=== PATIENT | female | born 1980 | race African-American/Black ===

== ENCOUNTER 2017-03-02 15:30 | Emergency (ER) | payer MEDICAID ==
[~2017-03-02] VITALS: Ht 167.6 cm; Wt 57.5 kg
[2017-03-02 16:56] VITALS: BP 108/65
== END 2017-03-02 19:40 | disposition left against medical advice (07) ==
LOC: ER 15:31
DX: R51 Headache (principal); Z53.21 Procedure and treatment not carried out due to patient leaving prior to being seen by health care provider
CPT/HCPCS: 82962

== ENCOUNTER 2018-11-06 23:30 | Emergency (ER) | payer MEDICAID ==
[~2018-11-06] VITALS: Ht 177.8 cm; Wt 61.0 kg
[2018-11-07] MEDS ORDERED: KETOROLAC 30MG/ML VIAL IV STA (01:13)
[2018-11-07] MEDS ORDERED: FAMOTIDINE 20MG/2ML VIAL IV STA (01:13)
[2018-11-07] MEDS ORDERED: ONDANSETRON HCL 4MG/2ML INJ IV STA (01:13)
[2018-11-07] MEDS ORDERED: SODIUM CHLORIDE 0.9% 1,000 ML IV ONE (01:13)
[2018-11-07 01:55] LABS: BASOPHILS % 1.1 % (0.0-2.0); EOSINOPHILS % 0.3 % (0.0-5.0); HEMATOCRIT. 35.4 % (36.0-48.0); HEMOGLOBIN. 11.2 g/dL (12.0-16.0); LYMPHOCYTES % 28.8 % (20.0-50.0); MEAN CORPUSCULAR HEMOGLOBIN 26.8 pg (28.0-32.0); MEAN PLATELET VOLUME 10.5 fl (7.4-10.4); MONOCYTES % 9.3 % (2.0-8.0); NEUTROPHILS % 60.5 % (40.0-76.0); PLATELET 131 x1000/uL (130-400); RED BLOOD CELL COUNT 4.17 mill/uL (4.2-5.4); RED CELL DISTRIBUTION WIDTH 12.8 % (11.6-14.6)
[2018-11-07 01:58] LABS: CHLORIDE 105 mEq/L (98-107)
[2018-11-07 02:02] LABS: ETHANOL BLOOD < 10 mg/dL
[2018-11-07] MEDS ORDERED: DEXTROSE 50% WATER 50ML SYRINGE IV ONE (04:15)
[2018-11-07 06:04] LABS: *AMPHETAMINES SCREEN URINE NEGATIVE (NEGATIVE); *BARBITURATES SCREEN URINE NEGATIVE (NEGATIVE); *COCAINE SCREEN URINE NEGATIVE (NEGATIVE)
[2018-11-07 06:05] LABS: CANNABINOID URINE SCREEN NEGATIVE (NEGATIVE); METHADONE URINE SCREEN NEGATIVE (NEGATIVE); OPIATES URINE SCREEN NEGATIVE (NEGATIVE); PHENCYCLIDINE URINE SCREEN NEGATIVE (NEGATIVE)
[2018-11-07 06:08] LABS: *BENZODIAZEPINES SCREEN URINE NEGATIVE (NEGATIVE)
[2018-11-07 06:12] LABS: CLARITY URINE CLEAR (CLEAR); COLOR URINE YELLOW (YELLOW); KETONES URINE NEGATIVE (NEGATIVE); LEUKOCYTE ESTERASE URINE NEGATIVE (NEGATIVE); NITRITE URINE NEGATIVE (NEGATIVE); OCCULT BLOOD URINE NEGATIVE (NEGATIVE); PH URINE 7.5 (4.5-8.0); PROTEIN URINE 1+ (NEGATIVE); SPECIFIC GRAVITY URINE 1.022 (1.005-1.030); UROBILINOGEN URINE 0.2 E.U./dL (0.2-1.0)
[2018-11-07] MEDS ORDERED: IOHEXOL-300 100 ML BOTTLE ONE (09:35)
[2018-11-07 11:30] VITALS: BP 133/93
[2018-11-07] MEDS ORDERED: ACETAMINOPHEN 325MG TABLET PO ONE (11:30)
== END 2018-11-07 12:07 | disposition home or self-care (01) ==
LOC: ER 23:45
DX: R10.9 Unspecified abdominal pain (principal); E11.9 Type 2 diabetes mellitus without complications; H54.8 Legal blindness, as defined in USA; Z97.5 Presence of (intrauterine) contraceptive device; Z88.2 Allergy status to sulfonamides; Z88.8 Allergy status to other drugs, medicaments and biological substances
CPT/HCPCS: 36415; 74177; 80053; 80305; 81003; 81025; 82962; 83690; 85025; 85610; 93005; 96361; 96374; 96375; 99284; G0482; J1885; J2405; J3490; J7030; Q9967

== ENCOUNTER 2018-12-04 12:07 | Emergency (ER) | payer MEDICAID ==
[~2018-12-04] VITALS: Ht 162.6 cm; Wt 60.0 kg
[2018-12-04] MEDS ORDERED: KETOROLAC 60MG/2ML VIAL IM ONE (13:15)
[2018-12-04] MEDS ORDERED: HYDROCODONE/ACETAMINOPHEN 5/325MG TABLET PO ONE (13:15)
[2018-12-04 13:18] VITALS: BP 135/87
== END 2018-12-04 18:29 | disposition home or self-care (01) ==
LOC: ER 12:49
DX: S13.4XXA Sprain of ligaments of cervical spine, initial encounter (principal); R51 Headache; E11.9 Type 2 diabetes mellitus without complications; M54.5 Low back pain; Z88.1 Allergy status to other antibiotic agents; Z88.2 Allergy status to sulfonamides; V43.62XA Car passenger injured in collision with other type car in traffic accident, initial encounter; Y93.89 Activity, other specified; Y92.89 Other specified places as the place of occurrence of the external cause; Y99.8 Other external cause status
CPT/HCPCS: 70450; 72040; 72125; 96372; 99284; J1885

== ENCOUNTER 2019-03-12 08:28 | Inpatient (IN) | payer MEDICAID ==
[~2019-03-12] VITALS: Ht 167.6 cm; Wt 62.3 kg
[2019-03-12 10:30] LABS: CLARITY URINE CLEAR (CLEAR); COLOR URINE YELLOW (YELLOW); KETONES URINE NEGATIVE (NEGATIVE); LEUKOCYTE ESTERASE URINE NEGATIVE (NEGATIVE); NITRITE URINE NEGATIVE (NEGATIVE); OCCULT BLOOD URINE NEGATIVE (NEGATIVE); PH URINE 6.5 (4.5-8.0); PROTEIN URINE TRACE (NEGATIVE); UROBILINOGEN URINE 0.2 E.U./dL (0.2-1.0)
[2019-03-12] MEDS ORDERED: SODIUM CHLORIDE 0.9% 1,000 ML IV ONE (10:30)
[2019-03-12] MEDS ORDERED: ACETAMINOPHEN 325MG TABLET PO ONE (10:30)
[2019-03-12 10:45] LABS: HEMATOCRIT. 36.9 % (36.0-48.0); HEMOGLOBIN. 11.9 g/dL (12.0-16.0); MEAN CORPUSCULAR HEMOGLOBIN 27.7 pg (28.0-32.0); MEAN CORPUSCULAR VOLUME 85.9 fL (81.0-99.0); RED CELL DISTRIBUTION WIDTH 12.9 % (11.6-14.6)
[2019-03-12 10:48] LABS: CHLORIDE 101 mEq/L (98-107)
[2019-03-12 10:58] LABS: T4 FREE 1.21 ng/dL (0.76-1.46)
[2019-03-12 11:12] LABS: PLATELET ESTIMATE NORMAL
[2019-03-12 11:51] LABS: BASOPHILS % 1.1 % (0.0-2.0); EOSINOPHILS % 0.9 % (0.0-5.0); HEMOGLOBIN. 11.4 g/dL (12.0-16.0); LYMPHOCYTES % 32.2 % (20.0-50.0); MEAN CORPUSCULAR HEMOGLOBIN 27.9 pg (28.0-32.0); MEAN CORPUSCULAR VOLUME 85.2 fL (81.0-99.0); MEAN PLATELET VOLUME 9.8 fl (7.4-10.4); MONOCYTES % 7.9 % (2.0-8.0); NEUTROPHILS % 57.9 % (40.0-76.0); PLATELET 202 x1000/uL (130-400); RED CELL DISTRIBUTION WIDTH 13.1 % (11.6-14.6)
[2019-03-12] MEDS ORDERED: DEXTROSE 50% WATER 50ML SYRINGE IV PRN (13:45)
[2019-03-12] MEDS ORDERED: PIPERACILLIN/TAZ 3.375G PREMIX 50 ML IV SCH (14:30)
[2019-03-12 14:47] LABS: *AMPHETAMINES SCREEN URINE NEGATIVE (NEGATIVE); *BARBITURATES SCREEN URINE NEGATIVE (NEGATIVE); *BENZODIAZEPINES SCREEN URINE NEGATIVE (NEGATIVE); *COCAINE SCREEN URINE NEGATIVE (NEGATIVE); METHADONE URINE SCREEN NEGATIVE (NEGATIVE); OPIATES URINE SCREEN NEGATIVE (NEGATIVE)
[2019-03-12 14:48] LABS: PHENCYCLIDINE URINE SCREEN NEGATIVE (NEGATIVE)
[2019-03-12 14:59] LABS: CANNABINOID URINE SCREEN PRESUMTIVE POSITIVE (NEGATIVE)
[2019-03-12 15:00] VITALS: BP 98/65
[2019-03-12 16:00] VITALS: BP 98/65
[2019-03-12] MEDS ORDERED: DULO20CA17 PO (16:48)
[2019-03-12] MEDS ORDERED: LEVO500T89 MT (16:48)
[2019-03-12] MEDS: BLOOD SUGAR DIAGNOSTIC STRIP TEST SCH ×2 (17:23→21:00)
[2019-03-12] MEDS: SODIUM CHLORIDE 0.45% 1,000 ML IV SCH (17:36)
[2019-03-12] MEDS: GABAPENTIN 300MG CAPSULE PO SCH ×2 (17:41→21:43)
[2019-03-12] MEDS: ENOXAPARIN 40MG/0.4ML SYR SUBCUT SCH (17:42)
[2019-03-12] MEDS: INSULIN LISPRO 100 UNITS/ML SUBCUT SCH ×2 (17:47→21:45)
[2019-03-12] MEDS ORDERED: VANCOMYCIN 1250MG in DEXTROSE 5% WATER 250ML IV SCH (18:00)
[2019-03-12 20:00] VITALS: BP 153/54
[2019-03-12] MEDS: DULOXETINE HCL 30MG DR CAPSULE PO SCH (21:43)
[2019-03-12] MEDS: PIPERACILLIN/TAZ 3.375G PREMIX 50 ML IV SCH (21:43)
[2019-03-13] VITALS: BP 98/62
[2019-03-13] MEDS: VANCOMYCIN 1 G PREMIX 200 ML IV SCH ×2 (01:44→10:42)
[2019-03-13] MEDS: PIPERACILLIN/TAZ 3.375G PREMIX 50 ML IV SCH ×3 (03:18→19:07)
[2019-03-13 04:00] VITALS: BP 99/60
[2019-03-13 05:59] LABS: BASOPHILS % 0.9 % (0.0-2.0); EOSINOPHILS % 1.8 % (0.0-5.0); HEMATOCRIT. 33.7 % (36.0-48.0); HEMOGLOBIN. 10.8 g/dL (12.0-16.0); LYMPHOCYTES % 35.6 % (20.0-50.0); MEAN CORPUSCULAR HEMOGLOBIN 27.4 pg (28.0-32.0); MEAN CORPUSCULAR VOLUME 85.8 fL (81.0-99.0); MEAN PLATELET VOLUME 10.2 fl (7.4-10.4); MONOCYTES % 7.3 % (2.0-8.0); NEUTROPHILS % 54.4 % (40.0-76.0); PLATELET 197 x1000/uL (130-400); RED BLOOD CELL COUNT 3.92 mill/uL (4.2-5.4)
[2019-03-13] MEDS: BLOOD SUGAR DIAGNOSTIC STRIP TEST SCH ×4 (06:26→21:00)
[2019-03-13 06:28] LABS: CHLORIDE 101 mEq/L (98-107)
[2019-03-13] MEDS: INSULIN LISPRO 100 UNITS/ML SUBCUT SCH ×4 (06:34→21:00)
[2019-03-13] MEDS: GABAPENTIN 300MG CAPSULE PO SCH ×2 (06:34→22:32)
[2019-03-13] MEDS: SODIUM CHLORIDE 0.45% 1,000 ML IV SCH ×2 (06:35→16:56)
[2019-03-13 06:52] LABS: VITAMIN B12 SERUM 895 pg/mL (211-911)
[2019-03-13] MEDS: DULOXETINE HCL 30MG DR CAPSULE PO SCH (09:21)
[2019-03-13] MEDS: ASPIRIN 81MG EC TABLET PO SCH (09:21)
[2019-03-13 09:50] LABS: UCG SCREEN NEGATIVE
[2019-03-13 10:32] VITALS: BP_SYST 69; BP_SYST 95; BP_DIAS 44; BP_DIAS 61
[2019-03-13] MEDS: ACETAMINOPHEN 325MG TABLET PO PRN (11:07)
[2019-03-13] MEDS ORDERED: INSULIN GLARGINE UD 100 UNITS/ML SYR SUBCUT ONE (11:45)
[2019-03-13 12:00] VITALS: BP 99/64
[2019-03-13] MEDS ORDERED: INSULIN GLARGINE UD 100 UNITS/ML SYR SUBCUT NR (13:00)
[2019-03-13 16:00] VITALS: BP 108/71
[2019-03-13] MEDS: FLUDROCORTISONE ACETATE 0.1MG TABLET PO SCH (16:55)
[2019-03-13] MEDS: ENOXAPARIN 40MG/0.4ML SYR SUBCUT SCH (16:55)
[2019-03-13 20:00] VITALS: BP_SYST 106; BP_SYST 98; BP_DIAS 62; BP_DIAS 66
[2019-03-13] MEDS: INSULIN GLARGINE UD 100 UNITS/ML SYR SUBCUT SCH (22:25)
[2019-03-14] VITALS: BP 86/41
[2019-03-14] MEDS: PIPERACILLIN/TAZ 3.375G PREMIX 50 ML IV SCH ×4 (00:51→17:56)
[2019-03-14 04:00] VITALS: BP 98/62
[2019-03-14] MEDS: SODIUM CHLORIDE 0.45% 1,000 ML IV SCH (04:55)
[2019-03-14] MEDS: VANCOMYCIN 750 MG PREMIX 150 ML IV SCH ×2 (05:07→18:44)
[2019-03-14] MEDS: INSULIN LISPRO 100 UNITS/ML SUBCUT SCH ×4 (05:17→21:39)
[2019-03-14] MEDS: BLOOD SUGAR DIAGNOSTIC STRIP TEST SCH ×4 (05:17→21:05)
[2019-03-14 06:36] LABS: CHLORIDE 107 mEq/L (98-107)
[2019-03-14 06:43] LABS: BASOPHILS % 1.4 % (0.0-2.0); EOSINOPHILS % 2.1 % (0.0-5.0); HEMATOCRIT. 33.1 % (36.0-48.0); HEMOGLOBIN. 10.7 g/dL (12.0-16.0); LYMPHOCYTES % 40.4 % (20.0-50.0); MEAN CORPUSCULAR HEMOGLOBIN 27.6 pg (28.0-32.0); MONOCYTES % 8.9 % (2.0-8.0); NEUTROPHILS % 47.2 % (40.0-76.0); PLATELET 185 x1000/uL (130-400)
[2019-03-14 08:00] VITALS: BP 90/50
[2019-03-14] MEDS: ASPIRIN 81MG EC TABLET PO SCH (09:12)
[2019-03-14] MEDS: FLUDROCORTISONE ACETATE 0.1MG TABLET PO SCH (09:12)
[2019-03-14] MEDS: DULOXETINE HCL 30MG DR CAPSULE PO SCH (09:12)
[2019-03-14] MEDS: LACTULOSE 20G/30ML UDC PO SCH ×2 (11:16→19:16)
[2019-03-14 12:00] VITALS: BP 110/75
[2019-03-14 16:00] VITALS: BP 100/60
[2019-03-14] MEDS: MIDODRINE HCL 2.5MG TABLET PO SCH (17:49)
[2019-03-14] MEDS: ENOXAPARIN 40MG/0.4ML SYR SUBCUT SCH (17:49)
[2019-03-14] MEDS: SODIUM CHLORIDE 0.9% 1,000 ML IV SCH (17:50)
[2019-03-14 20:00] VITALS: BP 110/71
[2019-03-14] MEDS: GABAPENTIN 300MG CAPSULE PO SCH (21:38)
[2019-03-14] MEDS: INSULIN GLARGINE UD 100 UNITS/ML SYR SUBCUT SCH (21:40)
[2019-03-15] VITALS: BP 111/73
[2019-03-15] MEDS: PIPERACILLIN/TAZ 3.375G PREMIX 50 ML IV SCH ×4 (01:03→20:11)
[2019-03-15] MEDS: ACETAMINOPHEN 325MG TABLET PO PRN (01:07)
[2019-03-15] MEDS: LACTULOSE 20G/30ML UDC PO SCH ×3 (03:50→19:05)
[2019-03-15 04:00] VITALS: BP 112/74
[2019-03-15] MEDS: SODIUM CHLORIDE 0.9% 1,000 ML IV SCH ×3 (05:07→18:15)
[2019-03-15] MEDS: BLOOD SUGAR DIAGNOSTIC STRIP TEST SCH ×4 (06:19→21:38)
[2019-03-15] MEDS: VANCOMYCIN 750 MG PREMIX 150 ML IV SCH ×2 (06:24→18:18)
[2019-03-15] MEDS: INSULIN LISPRO 100 UNITS/ML SUBCUT SCH ×4 (06:29→21:37)
[2019-03-15 06:55] LABS: BASOPHILS % 0.9 % (0.0-2.0); EOSINOPHILS % 1.2 % (0.0-5.0); HEMATOCRIT. 30.9 % (36.0-48.0); HEMOGLOBIN. 10.1 g/dL (12.0-16.0); LYMPHOCYTES % 29.6 % (20.0-50.0); MEAN CORPUSCULAR VOLUME 85.7 fL (81.0-99.0); MEAN PLATELET VOLUME 10.5 fl (7.4-10.4); MONOCYTES % 7.8 % (2.0-8.0); NEUTROPHILS % 60.5 % (40.0-76.0); PLATELET 171 x1000/uL (130-400); RED CELL DISTRIBUTION WIDTH 13.1 % (11.6-14.6)
[2019-03-15 07:52] LABS: CHLORIDE 108 mEq/L (98-107)
[2019-03-15 08:00] VITALS: BP 96/66
[2019-03-15] MEDS: FLUDROCORTISONE ACETATE 0.1MG TABLET PO SCH (09:05)
[2019-03-15] MEDS: ASPIRIN 81MG EC TABLET PO SCH (09:05)
[2019-03-15] MEDS: DULOXETINE HCL 30MG DR CAPSULE PO SCH (09:05)
[2019-03-15] MEDS: MIDODRINE HCL 2.5MG TABLET PO SCH ×3 (09:05→18:13)
[2019-03-15] MEDS ORDERED: MORPHINE SULFATE 2 MG/ML CPJ (NOT FOR IM USE) IV PRN (11:30)
[2019-03-15] MEDS ORDERED: MAGNESIUM/ALUMINUM HYDROXIDE/SIMETHICONE 30ML UDC PO PRN (11:30)
[2019-03-15 12:00] VITALS: BP 123/83
[2019-03-15] MEDS ORDERED: MAGNESIUM/ALUMINUM HYDROXIDE/SIMETHICONE 30ML UDC PO SCH (12:05)
[2019-03-15 12:36] LABS: BASOPHILS % 0.6 % (0.0-2.0); HEMOGLOBIN. 10.2 g/dL (12.0-16.0); MEAN CORPUSCULAR HEMOGLOBIN 27.3 pg (28.0-32.0); MEAN CORPUSCULAR VOLUME 85.5 fL (81.0-99.0); MEAN PLATELET VOLUME 9.4 fl (7.4-10.4); MONOCYTES % 7.3 % (2.0-8.0); NEUTROPHILS % 68.1 % (40.0-76.0); PLATELET 166 x1000/uL (130-400); RED BLOOD CELL COUNT 3.74 mill/uL (4.2-5.4); RED CELL DISTRIBUTION WIDTH 13.1 % (11.6-14.6)
[2019-03-15 12:43] LABS: CHLORIDE 106 mEq/L (98-107)
[2019-03-15 12:50] LABS: AMYLASE 25 IU/L (25-115)
[2019-03-15] MEDS: DIATR MEGLU/DIATRIZOATE SOLN 30ML PO SCH ×2 (13:49→16:00)
[2019-03-15 16:00] VITALS: BP 107/72
[2019-03-15] MEDS ORDERED: IOHEXOL-300 100 ML BOTTLE ONE (16:58)
[2019-03-15] MEDS: ENOXAPARIN 40MG/0.4ML SYR SUBCUT SCH (18:15)
[2019-03-15 20:00] VITALS: BP 109/72
[2019-03-15] MEDS: GABAPENTIN 300MG CAPSULE PO SCH (21:37)
[2019-03-15] MEDS: INSULIN GLARGINE UD 100 UNITS/ML SYR SUBCUT SCH (21:38)
[2019-03-15] MEDS: MECLIZINE 25MG TABLET PO SCH (21:43)
[2019-03-16] VITALS: BP 99/62
[2019-03-16] MEDS: PIPERACILLIN/TAZ 3.375G PREMIX 50 ML IV SCH ×4 (00:56→18:45)
[2019-03-16] MEDS: LACTULOSE 20G/30ML UDC PO SCH ×3 (03:35→19:00)
[2019-03-16 04:00] VITALS: BP 114/78
[2019-03-16] MEDS: VANCOMYCIN 750 MG PREMIX 150 ML IV SCH ×2 (06:19→17:29)
[2019-03-16] MEDS: SODIUM CHLORIDE 0.9% 1,000 ML IV SCH ×3 (06:20→17:36)
[2019-03-16 06:41] LABS: CHLORIDE 110 mEq/L (98-107)
[2019-03-16 06:46] LABS: AMYLASE 21 IU/L (25-115)
[2019-03-16 06:52] LABS: EOSINOPHILS % 2.2 % (0.0-5.0); HEMATOCRIT. 30.4 % (36.0-48.0); HEMOGLOBIN. 9.7 g/dL (12.0-16.0); LYMPHOCYTES % 38.5 % (20.0-50.0); MEAN CORPUSCULAR HEMOGLOBIN 27.4 pg (28.0-32.0); MEAN CORPUSCULAR VOLUME 85.6 fL (81.0-99.0); MEAN PLATELET VOLUME 10.2 fl (7.4-10.4); MONOCYTES % 8.2 % (2.0-8.0); NEUTROPHILS % 50.1 % (40.0-76.0); PLATELET 161 x1000/uL (130-400); RED BLOOD CELL COUNT 3.55 mill/uL (4.2-5.4)
[2019-03-16] MEDS: BLOOD SUGAR DIAGNOSTIC STRIP TEST SCH ×4 (06:57→21:19)
[2019-03-16] MEDS: INSULIN LISPRO 100 UNITS/ML SUBCUT SCH ×4 (06:57→21:35)
[2019-03-16] MEDS: MECLIZINE 25MG TABLET PO SCH ×3 (07:33→21:19)
[2019-03-16 08:00] VITALS: BP 115/77
[2019-03-16] MEDS: ASPIRIN 81MG EC TABLET PO SCH (09:33)
[2019-03-16] MEDS: FLUDROCORTISONE ACETATE 0.1MG TABLET PO SCH (09:33)
[2019-03-16] MEDS: DULOXETINE HCL 30MG DR CAPSULE PO SCH (09:33)
[2019-03-16] MEDS: MIDODRINE HCL 2.5MG TABLET PO SCH ×3 (09:33→17:29)
[2019-03-16 11:58] VITALS: BP 108/73
[2019-03-16 16:00] VITALS: BP 110/65
[2019-03-16] MEDS: ENOXAPARIN 40MG/0.4ML SYR SUBCUT SCH (17:30)
[2019-03-16] MEDS: GABAPENTIN 300MG CAPSULE PO SCH (21:19)
[2019-03-16] MEDS: INSULIN GLARGINE UD 100 UNITS/ML SYR SUBCUT SCH (21:31)
[2019-03-17] MEDS: PIPERACILLIN/TAZ 3.375G PREMIX 50 ML IV SCH ×3 (00:33→12:21)
[2019-03-17] MEDS: LACTULOSE 20G/30ML UDC PO SCH ×2 (03:00→11:07)
[2019-03-17] MEDS: SODIUM CHLORIDE 0.9% 1,000 ML IV SCH ×2 (05:01→08:35)
[2019-03-17] MEDS: VANCOMYCIN 750 MG PREMIX 150 ML IV SCH (06:53)
[2019-03-17] MEDS: INSULIN LISPRO 100 UNITS/ML SUBCUT SCH ×2 (06:54→11:20)
[2019-03-17] MEDS: BLOOD SUGAR DIAGNOSTIC STRIP TEST SCH ×2 (06:54→11:20)
[2019-03-17] MEDS: MECLIZINE 25MG TABLET PO SCH ×2 (06:58→13:29)
[2019-03-17 08:00] VITALS: BP 96/62
[2019-03-17] MEDS: ASPIRIN 81MG EC TABLET PO SCH (08:34)
[2019-03-17] MEDS: FLUDROCORTISONE ACETATE 0.1MG TABLET PO SCH (08:34)
[2019-03-17] MEDS: DULOXETINE HCL 30MG DR CAPSULE PO SCH (08:34)
[2019-03-17] MEDS: MIDODRINE HCL 2.5MG TABLET PO SCH ×2 (08:34→12:21)
[2019-03-17 11:58] VITALS: BP 119/81
[2019-03-17 15:36] VITALS: BP 119/81
== END 2019-03-17 16:40 | disposition home or self-care (01) | DRG 26 ==
LOC: ER 08:28 → 5WST 12:40 → EDBEDREQTM 12:44 → EDBEDREQ 12:44 → ENRESERV 14:05
PROVIDERS: ADMIT Internal Medicine Nephrology; ATTEND Internal Medicine Nephrology
PROC: 0JBQ0ZZ Excision of Right Foot Subcutaneous Tissue and Fascia, Open Approach (ICD-10-PCS; principal; 2019-03-13)
PROC: 0JDR0ZZ Extraction of Left Foot Subcutaneous Tissue and Fascia, Open Approach (ICD-10-PCS; 2019-03-13)
DX: G90.8 Other disorders of autonomic nervous system (principal); I95.9 Hypotension, unspecified; E11.42 Type 2 diabetes mellitus with diabetic polyneuropathy; E11.319 Type 2 diabetes mellitus with unspecified diabetic retinopathy without macular edema; E11.43 Type 2 diabetes mellitus with diabetic autonomic (poly)neuropathy; E87.1 Hypo-osmolality and hyponatremia; E11.621 Type 2 diabetes mellitus with foot ulcer; E11.65 Type 2 diabetes mellitus with hyperglycemia; K31.84 Gastroparesis; S91.331A Puncture wound without foreign body, right foot, initial encounter; X58.XXXA Exposure to other specified factors, initial encounter; K81.9 Cholecystitis, unspecified; L97.519 Non-pressure chronic ulcer of other part of right foot with unspecified severity; H33.21 Serous retinal detachment, right eye; G89.4 Chronic pain syndrome; I10 Essential (primary) hypertension; E03.9 Hypothyroidism, unspecified; E86.0 Dehydration; D64.9 Anemia, unspecified; F12.90 Cannabis use, unspecified, uncomplicated; H54.8 Legal blindness, as defined in USA; K27.9 Peptic ulcer, site unspecified, unspecified as acute or chronic, without hemorrhage or perforation; L84 Corns and callosities; R62.7 Adult failure to thrive; Z79.4 Long term (current) use of insulin; Z79.899 Other long term (current) drug therapy; Z91.19 Patient's noncompliance with other medical treatment and regimen; Z88.1 Allergy status to other antibiotic agents; Z88.2 Allergy status to sulfonamides; Z88.8 Allergy status to other drugs, medicaments and biological substances; Z79.84 Long term (current) use of oral hypoglycemic drugs; Y93.89 Activity, other specified; Y92.89 Other specified places as the place of occurrence of the external cause; Y99.8 Other external cause status
CPT/HCPCS: 36415; 71045; 74178; 76700; 80048; 80202; 80305; 81025; 82140; 82150; 82607; 82962; 83036; 83735; 83880; 84439; 84443; 84484; 87070; 87077; 93005; 93306; 93923; 93970; 96374; 96375; 97110; 97116; 97162; 97530; 99285; J1650; J1815; J2270; J2543; J3370; J7030; J7060; J8597; Q9963; Q9967

== ENCOUNTER 2019-07-19 11:01 | Emergency (ER) | payer MEDICAID ==
[~2019-07-19] VITALS: Ht 167.6 cm; Wt 59.0 kg
[~2019-07-19 11:01] MED LIST: DULO20CA18 PO; LEVO500T89 MT
[2019-07-19] MEDS ORDERED: DIPHENHYDRAMINE 25MG CAPSULE PO ONE (12:15)
[2019-07-19] MEDS ORDERED: ACETAMINOPHEN 500MG TABLET PO ONE (12:15)
[2019-07-19 12:50] VITALS: BP 132/90
== END 2019-07-19 12:55 | disposition home or self-care (01) ==
LOC: ER 12:53
DX: R21 Rash and other nonspecific skin eruption (principal); E11.9 Type 2 diabetes mellitus without complications; Z88.2 Allergy status to sulfonamides
CPT/HCPCS: 99283; Q0163

== ENCOUNTER 2020-09-12 19:31 | Inpatient (IN) | payer MEDICARE, MEDICAID ==
[~2020-09-12] VITALS: Ht 167.6 cm; Wt 60.8 kg
[2020-09-12] MEDS ORDERED: ONDANSETRON HCL 4MG/2ML INJ IV STA (20:04)
[2020-09-12] MEDS ORDERED: MORPHINE SULFATE 4 MG/ML CPJ (NOT FOR IM USE) IV STA (20:04)
[2020-09-12] MEDS ORDERED: SODIUM CHLORIDE 0.9% 1,000 ML IV ONE ×2 (20:15→21:15)
[2020-09-12 20:54] LABS: HEMATOCRIT. 39.2 % (36.0-48.0); HEMOGLOBIN. 11.6 g/dL (12.0-16.0); MEAN CORPUSCULAR HEMOGLOBIN 27.9 pg (28.0-32.0); MEAN CORPUSCULAR VOLUME 94.3 fL (81.0-99.0); MEAN PLATELET VOLUME 12.1 fl (7.4-10.4); PLATELET 185 x1000/uL (130-400); RED BLOOD CELL COUNT 4.16 mill/uL (4.2-5.4); RED CELL DISTRIBUTION WIDTH 15.4 % (11.6-14.6)
[2020-09-12 21:00] LABS: CHLORIDE 87 mEq/L (98-107)
[2020-09-12 21:02] LABS: PROTHROMBIN TIME 10.3 sec (9.6-11.0)
[2020-09-12 21:04] LABS: ETHANOL BLOOD < 10 mg/dL
[2020-09-12 21:09] LABS: HCG SCREEN NEGATIVE
[2020-09-12] MEDS ORDERED: KCL 20MEQ/100ML PREMIX 100 ML IV ONE (21:15)
[2020-09-12] MEDS ORDERED: INSULIN REGULAR (DRIP) 100 UNITS in SODIUM CHLORIDE 0.9% 99 ML IV ONE (21:15)
[2020-09-12] MEDS ORDERED: VANCOMYCIN 1 G PREMIX 200 ML IV ONE (21:30)
[2020-09-12] MEDS ORDERED: PIPERACILLIN/TAZ 3.375G PREMIX 50 ML IV ONE (21:30)
[2020-09-12] MEDS ORDERED: INSULIN REGULAR (DRIP) 100 UNITS in SODIUM CHLORIDE 0.9% 99 ML IV SCH (21:30)
[2020-09-12 21:49] LABS: BETA HYDROXYBUTYRATE 14.3 mMol/L (0.0-0.3)
[2020-09-12 23:00] LABS: PLATELET ESTIMATE NORMAL
[2020-09-12] MEDS ORDERED: LACTATED RINGERS 1,000 ML IV SCH ×2 (23:00)
[2020-09-12] MEDS ORDERED: NOREPINEPHRINE 8 MG in DEXT 5% WATER 242 ML IV STA (23:02)
[2020-09-12] MEDS ORDERED: NOREPINEPHRINE 8MG/250ML PMX 250ML IV PRN (23:30)
[2020-09-12 23:49] LABS: CHLORIDE 101 mEq/L (98-107)
[2020-09-13 00:17] LABS: PHOSPHORUS 6.4 mg/dL (2.5-4.9)
[2020-09-13] MEDS: MORPHINE SULFATE 2 MG/ML CPJ (NOT FOR IM USE) IV PRN ×2 (02:03→13:14)
[2020-09-13 02:33] LABS: BG BASE EXCESS -11.3 mmol/L (-2.0-2.0); BG CARBOXYHEMOGLOBIN 0.3 % (0.5-1.5); BG DEOXYHEMOGLOBIN 2.2 % (0.0-5.0); BG FRACTION INSPIRED OXYGEN 21; BG HCO3 ACT 12.5 mmol/L (22.0-26.0); BG METHEMOGLOBIN 0.1 % (0.0-1.5); BG OXYGEN SATURATION 97.8 % (92.0-98.5); BG OXYHEMOGLOBIN 97.4 % (94.0-97.0); BG PCO2 22.6 mmHg (35.0-45.0); BG PH 7.361 (7.350-7.450); BG PO2 113.4 mmHg (75.0-100.0); BG SAMPLE SITE RIGHT RADIAL; BG TOTAL HEMOGLOBIN 10.4 g/dL (12.0-18.0); BG VENT MODE ROOM AIR
[2020-09-13 03:08] LABS: CLARITY URINE CLEAR (CLEAR); COLOR URINE YELLOW (YELLOW); KETONES URINE 3+ (NEGATIVE); LEUKOCYTE ESTERASE URINE NEGATIVE (NEGATIVE); NITRITE URINE NEGATIVE (NEGATIVE); OCCULT BLOOD URINE NEGATIVE (NEGATIVE); PROTEIN URINE NEGATIVE (NEGATIVE); SPECIFIC GRAVITY URINE 1.021 (1.005-1.030); UROBILINOGEN URINE 0.2 E.U./dL (0.2-1.0)
[2020-09-13 03:11] LABS: CHLORIDE 107 mEq/L (98-107)
[2020-09-13 03:18] LABS: *AMPHETAMINES SCREEN URINE NEGATIVE (NEGATIVE)
[2020-09-13 03:19] LABS: *BARBITURATES SCREEN URINE NEGATIVE (NEGATIVE); *BENZODIAZEPINES SCREEN URINE NEGATIVE (NEGATIVE); *COCAINE SCREEN URINE NEGATIVE (NEGATIVE); METHADONE URINE SCREEN NEGATIVE (NEGATIVE); PHENCYCLIDINE URINE SCREEN NEGATIVE (NEGATIVE)
[2020-09-13 03:20] LABS: CANNABINOID URINE SCREEN NEGATIVE (NEGATIVE)
[2020-09-13 03:25] LABS: OPIATES URINE SCREEN PRESUMTIVE POSITIVE (NEGATIVE)
[2020-09-13 05:44] LABS: CHLORIDE 111 mEq/L (98-107)
[2020-09-13] MEDS ORDERED: INSULIN GLARGINE UD 100 UNITS/ML SYR SUBCUT SCH (07:00)
[2020-09-13] MEDS: SODIUM CHLORIDE 0.45% 1,000 ML IV SCH ×2 (09:45→21:59)
[2020-09-13] MEDS: INSULIN GLARGINE UD 100 UNITS/ML SYR SUBCUT SCH ×2 (10:52→20:45)
[2020-09-13] MEDS: BLOOD SUGAR DIAGNOSTIC STRIP TEST SCH ×3 (12:09→20:45)
[2020-09-13] MEDS: FAMOTIDINE 20MG/2ML VIAL IV SCH (12:27)
[2020-09-13] MEDS: INSULIN LISPRO 100 UNITS/ML SUBCUT SCH ×3 (12:27→20:44)
[2020-09-13] MEDS: METOCLOPRAMIDE HCL 10MG/2ML VIAL IV SCH ×2 (18:02→23:57)
[2020-09-13 18:42] VITALS: BP 121/80
[2020-09-13 20:00] VITALS: BP 97/47
[2020-09-13] MEDS: DEXTROSE 50% WATER 50ML SYRINGE IV PRN (20:39)
[2020-09-13] MEDS ORDERED: ONDANSETRON HCL 4MG/2ML INJ IV PRN (21:45)
[2020-09-14] VITALS: BP 122/71
[2020-09-14 04:00] VITALS: BP 126/77
[2020-09-14] MEDS: METOCLOPRAMIDE HCL 10MG/2ML VIAL IV SCH ×3 (05:35→17:40)
[2020-09-14] MEDS: SODIUM CHLORIDE 0.45% 1,000 ML IV SCH ×2 (05:35→14:50)
[2020-09-14] MEDS: MORPHINE SULFATE 2 MG/ML CPJ (NOT FOR IM USE) IV PRN ×3 (06:01→21:08)
[2020-09-14] MEDS: BLOOD SUGAR DIAGNOSTIC STRIP TEST SCH ×4 (06:15→20:55)
[2020-09-14] MEDS: INSULIN LISPRO 100 UNITS/ML SUBCUT SCH ×4 (06:53→20:54)
[2020-09-14 07:50] LABS: BASOPHILS % 0.2 % (0.0-2.0); HEMOGLOBIN. 9.2 g/dL (12.0-16.0); LYMPHOCYTES % 9.2 % (20.0-50.0); MEAN CORPUSCULAR HEMOGLOBIN 27.5 pg (28.0-32.0); MEAN CORPUSCULAR VOLUME 86.5 fL (81.0-99.0); MEAN PLATELET VOLUME 10.4 fl (7.4-10.4); MONOCYTES % 7.9 % (2.0-8.0); NEUTROPHILS % 82.7 % (40.0-76.0); PLATELET 150 x1000/uL (130-400); RED BLOOD CELL COUNT 3.35 mill/uL (4.2-5.4); RED CELL DISTRIBUTION WIDTH 14.3 % (11.6-14.6)
[2020-09-14 08:00] VITALS: BP 103/55
[2020-09-14] MEDS: INSULIN GLARGINE UD 100 UNITS/ML SYR SUBCUT SCH (09:13)
[2020-09-14] MEDS: FAMOTIDINE 20MG/2ML VIAL IV SCH (09:13)
[2020-09-14 09:43] LABS: CHLORIDE 109 mEq/L (98-107)
[2020-09-14 12:00] VITALS: BP 126/78
[2020-09-14] MEDS ORDERED: METO-293 MT (13:48)
[2020-09-14] MEDS ORDERED: INSU100I28 SQ (13:48)
[2020-09-14] MEDS ORDERED: POTASSIUM CHLORIDE 20MEQ TABLET SR PO NR ×2 (14:00→15:00)
[2020-09-14 14:23] LABS: BG BASE EXCESS 4.2 mmol/L (-2.0-2.0); BG CARBOXYHEMOGLOBIN 0.3 % (0.5-1.5); BG DEOXYHEMOGLOBIN 4.8 % (0.0-5.0); BG FRACTION INSPIRED OXYGEN 21; BG HCO3 ACT 28.1 mmol/L (22.0-26.0); BG METHEMOGLOBIN 0.3 % (0.0-1.5); BG OXYGEN SATURATION 95.2 % (92.0-98.5); BG OXYHEMOGLOBIN 94.6 % (94.0-97.0); BG PCO2 39.1 mmHg (35.0-45.0); BG PH 7.474 (7.350-7.450); BG PO2 75.3 mmHg (75.0-100.0); BG SAMPLE SITE RIGHT BRACHIAL; BG TOTAL HEMOGLOBIN 10.4 g/dL (12.0-18.0); BG VENT MODE ROOM AIR
[2020-09-14 16:00] VITALS: BP 115/70
[2020-09-14] MEDS: DEXTROSE 50% WATER 50ML SYRINGE IV PRN (16:02)
[2020-09-14] MEDS: DEXT 5%/0.45% NACL 1000ML 1,000 ML IV SCH (16:33)
[2020-09-14 20:00] VITALS: BP 117/74
[2020-09-15] VITALS: BP 126/83
[2020-09-15] MEDS: METOCLOPRAMIDE HCL 10MG/2ML VIAL IV SCH ×4 (00:29→18:56)
[2020-09-15 04:00] VITALS: BP 132/81
[2020-09-15] MEDS: DEXT 5%/0.45% NACL 1000ML 1,000 ML IV SCH ×2 (05:00→18:57)
[2020-09-15] MEDS: INSULIN LISPRO 100 UNITS/ML SUBCUT SCH ×4 (06:26→23:12)
[2020-09-15] MEDS: BLOOD SUGAR DIAGNOSTIC STRIP TEST SCH ×4 (06:27→21:00)
[2020-09-15 06:43] LABS: CHLORIDE 103 mEq/L (98-107)
[2020-09-15 06:54] LABS: BASOPHILS % 0.4 % (0.0-2.0); EOSINOPHILS % 0.3 % (0.0-5.0); MEAN CORPUSCULAR HEMOGLOBIN 27.8 pg (28.0-32.0); MEAN CORPUSCULAR VOLUME 85.7 fL (81.0-99.0); MEAN PLATELET VOLUME 10.5 fl (7.4-10.4); MONOCYTES % 9.1 % (2.0-8.0); NEUTROPHILS % 69.2 % (40.0-76.0); PLATELET 124 x1000/uL (130-400); RED BLOOD CELL COUNT 3.61 mill/uL (4.2-5.4); RED CELL DISTRIBUTION WIDTH 13.7 % (11.6-14.6)
[2020-09-15 07:47] VITALS: BP 118/78
[2020-09-15] MEDS: FAMOTIDINE 20MG/2ML VIAL IV SCH (08:58)
[2020-09-15] MEDS: MORPHINE SULFATE 2 MG/ML CPJ (NOT FOR IM USE) IV PRN ×2 (08:58→16:36)
[2020-09-15 12:00] VITALS: BP 120/74
[2020-09-15] MEDS ORDERED: POTASSIUM CHLORIDE 20MEQ TABLET SR PO NR (13:00)
[2020-09-15] MEDS ORDERED: INSULIN GLARGINE UD 100 UNITS/ML SYR SUBCUT NR (14:00)
[2020-09-15 16:00] VITALS: BP 118/80
[2020-09-15 20:00] VITALS: BP 146/95
[2020-09-15] MEDS ORDERED: THROAT LOZENGES-BENZOCAINE/MENTH/CETYLPYRD CL LOZENGES MM PRN (21:00)
[2020-09-16] VITALS (7 sets, daily range): BP systolic 116–143; BP diastolic 67–103
[2020-09-16] MEDS: METOCLOPRAMIDE HCL 10MG/2ML VIAL IV SCH ×4 (00:46→21:50)
[2020-09-16] MEDS: MORPHINE SULFATE 2 MG/ML CPJ (NOT FOR IM USE) IV PRN ×2 (06:28→12:19)
[2020-09-16] MEDS: INSULIN LISPRO 100 UNITS/ML SUBCUT SCH ×4 (07:39→21:00)
[2020-09-16] MEDS: BLOOD SUGAR DIAGNOSTIC STRIP TEST SCH ×4 (07:52→21:43)
[2020-09-16] MEDS: DEXT 5%/0.45% NACL 1000ML 1,000 ML IV SCH ×2 (09:05→21:51)
[2020-09-16] MEDS: FAMOTIDINE 20MG/2ML VIAL IV SCH (09:05)
[2020-09-16] MEDS ORDERED: BARIUM SULFATE 176 GM SUSP.RECON ONE (09:53)
[2020-09-16] MEDS ORDERED: INSULIN GLARGINE UD 100 UNITS/ML SYR SUBCUT NR (14:30)
[2020-09-16 16:30] LABS: CHLORIDE 103 mEq/L (98-107)
[2020-09-16] MEDS ORDERED: HYDROCODONE/ACETAMINOPHEN 5/325MG TABLET PO PRN (21:45)
[2020-09-16] MEDS: ACETAMINOPHEN 325MG TABLET PO PRN (21:53)
[2020-09-17] VITALS (7 sets, daily range): BP systolic 107–175; BP diastolic 62–98
[2020-09-17] MEDS: METOCLOPRAMIDE HCL 10MG/2ML VIAL IV SCH ×4 (01:45→18:00)
[2020-09-17] MEDS: INSULIN LISPRO 100 UNITS/ML SUBCUT SCH ×3 (06:01→17:40)
[2020-09-17] MEDS: BLOOD SUGAR DIAGNOSTIC STRIP TEST SCH ×3 (06:02→18:05)
[2020-09-17] MEDS: FAMOTIDINE 20MG/2ML VIAL IV SCH (09:05)
[2020-09-17] MEDS: DEXT 5%/0.45% NACL 1000ML 1,000 ML IV SCH (10:59)
[2020-09-17] MEDS ORDERED: MAGNESIUM/ALUMINUM HYDROXIDE/SIMETHICONE 30ML UDC PO PRN (13:45)
[2020-09-17] MEDS ORDERED: PANTOPRAZOLE SODIUM 40 MG/VIAL IV SCH (13:45)
[2020-09-17 15:16] LABS: BASOPHILS % 0.8 % (0.0-2.0); EOSINOPHILS % 0.9 % (0.0-5.0); HEMATOCRIT. 30.6 % (36.0-48.0); HEMOGLOBIN. 9.8 g/dL (12.0-16.0); LYMPHOCYTES % 18.8 % (20.0-50.0); MEAN CORPUSCULAR HEMOGLOBIN 27.5 pg (28.0-32.0); MEAN CORPUSCULAR VOLUME 86.1 fL (81.0-99.0); MEAN PLATELET VOLUME 10.2 fl (7.4-10.4); MONOCYTES % 11.1 % (2.0-8.0); NEUTROPHILS % 68.4 % (40.0-76.0); PLATELET 145 x1000/uL (130-400); RED BLOOD CELL COUNT 3.55 mill/uL (4.2-5.4); RED CELL DISTRIBUTION WIDTH 13.3 % (11.6-14.6)
[2020-09-17 15:22] LABS: CHLORIDE 104 mEq/L (98-107)
[2020-09-17] MEDS ORDERED: POTASSIUM CHLORIDE 20MEQ TABLET SR PO NR (18:00)
[2020-09-17] MEDS: ACETAMINOPHEN 325MG TABLET PO PRN (18:12)
== END 2020-09-17 20:30 | disposition home or self-care (01) | DRG 637 ==
LOC: ER 19:31 → MICUSO 22:04 → ENRESERV 09-13 15:58 → 8WST 09-13 16:54
PROVIDERS: ADMIT Internal Medicine; ATTEND Internal Medicine
DX: E11.10 Type 2 diabetes mellitus with ketoacidosis without coma (principal); N17.0 Acute kidney failure with tubular necrosis; G93.41 Metabolic encephalopathy; E87.1 Hypo-osmolality and hyponatremia; H54.8 Legal blindness, as defined in USA; E87.8 Other disorders of electrolyte and fluid balance, not elsewhere classified; E11.39 Type 2 diabetes mellitus with other diabetic ophthalmic complication; E11.43 Type 2 diabetes mellitus with diabetic autonomic (poly)neuropathy; N32.89 Other specified disorders of bladder; Z79.899 Other long term (current) drug therapy
CPT/HCPCS: 36415; 36600; 71045; 74176; 74220; 80048; 80053; 80305; 80307; 80320; 80329; 81003; 82010; 82140; 82375; 82805; 82962; 83036; 83605; 83735; 84100; 84484; 84703; 85025; 86850; 86900; 87070; 87430; 92610; 93005; 99285; J1815; J2270; J2405; J2543; J2765; J3370; J3480; J3490; J7030; J7050; J7060; G0480

== ENCOUNTER 2023-10-09 18:51 | Emergency (ER) | payer MEDICARE, MEDICAID ==
[~2023-10-09] VITALS: Ht 170.2 cm; Wt 84.0 kg
[~2023-10-09 18:51] MED LIST changes: +INSU100I28 SQ; -LEVO500T89 MT; +METO-293 MT
[2023-10-09 19:09] VITALS: BP 168/88; PULSE 74; RESP 18; TEMP 98.3; O2SAT 100
[2023-10-09] MEDS ORDERED: SODIUM CHLORIDE 0.9% 1,400 ML IV ONE (19:15)
== END 2023-10-09 22:15 | disposition left against medical advice (07) ==
LOC: ER 18:51
DX: R06.02 Shortness of breath (principal); F19.90 Other psychoactive substance use, unspecified, uncomplicated; E11.9 Type 2 diabetes mellitus without complications; I10 Essential (primary) hypertension; Z88.2 Allergy status to sulfonamides; Z88.8 Allergy status to other drugs, medicaments and biological substances
CPT/HCPCS: 99283; 71045; 93005; J7030